=== PATIENT | female | born 1995 | race Caucasian/White ===

== ENCOUNTER 2017-08-15 16:32 | Emergency (ER) | payer BC ==
[2017-08-15 16:48] VITALS: BP 125/87
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
== END 2017-08-15 17:23 | disposition home or self-care (01) ==
LOC: MW.ED 16:32
DX: M54.2 Cervicalgia (principal); G89.29 Other chronic pain; F17.210 Nicotine dependence, cigarettes, uncomplicated; Z88.1 Allergy status to other antibiotic agents; Z87.440 Personal history of urinary (tract) infections
CPT/HCPCS: 99283; 99284

== ENCOUNTER 2017-10-01 19:36 | Emergency (ER) | payer BC ==
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
[2017-10-01] MEDS ORDERED: Sodium Chloride 0.9% 2.5 ML Syringe FLUSH PRN (20:25)
[2017-10-01] MEDS ORDERED: Sodium Chloride 0.9% 10 ML Syringe FLUSH PRN (20:25)
[2017-10-01 21:03] LABS: CHLORIDE,CL 107 mmol/L (98-110); SODIUM,NA 140 mmol/L (136-146)
[2017-10-01] MEDS ORDERED: Ondansetron 4 MG/2 ML SDV IVPUSH ONE (21:17)
[2017-10-01] MEDS ORDERED: Morphine 10 MG/ML Syringe IV ONE ×2 (21:17→21:49)
[2017-10-01] MEDS ORDERED: Iopamidol 755 MG/ML 500 ML Multipack Bottle IVPUSH STA (23:13)
[2017-10-01 23:26] VITALS: BP 118/70
--- NOTE | 2017-10-02 11:26 | CT ---
EXAM DATE: 10/01/17 PATIENT'S AGE: 22 Patient: RADHA CURRY Facility: [place], [place] Site . Site : 1995 Study: CT Abdomen/Pelvis [id number] 9:41:50 PM Ordering Physician: Doctor Montemayor Final Report: INDICATION: RIGHT UPPER QUADRANT pain for 2 days TECHNIQUE: CT Abdomen and pelvis with i.v. contrast. Coronal and sagittal reformats were obtained. CONTRAST: 100 mL Isovue 370 COMPARISON: None FINDINGS: Lower chest: Unremarkable. Liver: Unremarkable. Spleen: Unremarkable. Pancreas: Unremarkable. Gallbladder: Unremarkable. Kidney: Unremarkable. No kidney or ureteral stones or obstruction seen. Adrenal: Unremarkable. GI tract: Unremarkable. The appendix is normal in appearance and size. Vascular: Unremarkable. Lymph: Unremarkable. Peritoneum: Unremarkable. No pneumoperitoneum is seen. Trace pelvic ascites noted. Pelvis: The multiloculated cystic structure in the left adnexa measuring 8 x 3.8 cm. It has mild enhancing margins. Soft tissue: Unremarkable. Bones: Bilateral chronic pars defects of L5 noted with no significant anterolisthesis of L5-S1 noted. IMPRESSION: 1. The multiloculated cystic structure in the left adnexa measuring 8 x 3.8 cm. It has mild enhancing margins. Characterization with pelvic ultrasound may be helpful to exclude an ovarian cystic mass or tubo-ovarian abscess. Dictated by Armand Billingsley MD @ 10/01/2017 9:54:43 PM Dictated by: Armand Billingsley MD @ 10/01/2017 21:54:54 (Electronic Signature) Report Signed by Proxy. [facility] PARTNERSThao
== END 2017-10-01 20:30 | disposition home or self-care (01) ==
LOC: MW.ED 19:36
DX: R07.89 Other chest pain (principal); F32.9 Major depressive disorder, single episode, unspecified; F17.210 Nicotine dependence, cigarettes, uncomplicated; Z88.1 Allergy status to other antibiotic agents
CPT/HCPCS: 74177; 80053; 81001; 84702; 85025; 96374; 96375; 99285; J2270; J2405; Q9967; 99283